=== PATIENT | female | born 1990 | race Caucasian/White ===

== ENCOUNTER 2018-11-14 00:22 | Emergency (ER) | payer BC ==
[~2018-11-14] VITALS: Ht 160 cm; Wt 68.2 kg
[2018-11-14 00:28] VITALS: Ht 160 cm; Wt 68.2 kg
[2018-11-14] MEDS ORDERED: FOLIC ACID (00:30)
[2018-11-14] MEDS ORDERED: PRENATALS (00:31)
[2018-11-14 00:54] LABS: APPEARANCE CLEAR (CLEAR); BILIRUBIN NEGATIVE (NEGATIVE); COLOR STRAW (YELLOW); GLUCOSE NEGATIVE (NEGATIVE); KETONE NEGATIVE (NEGATIVE); NITRITE NEGATIVE (NEGATIVE); PROTEIN NEGATIVE (NEGATIVE); SPECIFIC GRAVITY 1.005 (1.005-1.020); UROBILINOGEN NORMAL (NORMAL)
[2018-11-14 01:02] LABS: BASOPHILS 0.1 % (0-2); EOSINOPHILS 0.8 % (0-7); HEMATOCRIT 38.6 % (36.0-48.0); HEMOGLOBIN 12.8 g/dL (12-16); IMMATURE GRANULOCYTES 0.1 % (0-5); LYMPHOCYTES 20.8 % (15-50); MCH 29.7 pg (26.0-34.0); MCHC 33.2 g/dL (31.0-37.0); MCV 89.6 fL (80.0-100.0); MEAN PLATELET VOLUME 10.5 fL (7.4-10.4); MONOCYTES 8.1 % (2-11); NEUTROPHILS 70.1 % (40-80); PLATELET COUNT 251 10x3/uL (130-400); RBC 4.31 10x6/uL (4.00-5.40); RDW 13.4 % (11.5-14.5); WBC 9.5 10x3/uL (4.8-10.8)
[2018-11-14 01:14] LABS: HCG SERUM POSITIVE (NEGATIVE)
[2018-11-14 01:21] LABS: ALBUMIN 3.7 g/dL (3.4-5.0); ANION GAP 16.3 mmol/L (8-16); BILIRUBIN - TOTAL 0.32 mg/dL (0.2-1.3); CALCIUM 8.8 mg/dL (8.5-10.1); CARBON DIOXIDE 23.3 mmol/L (21.0-32.0); POTASSIUM - SERUM 3.6 mmol/L (3.5-5.1); PROTEIN - SERUM 7.2 g/dL (6.4-8.2)
[2018-11-14 02:55] VITALS: BP 110/80
== END 2018-11-14 02:55 | disposition home or self-care (01) ==
LOC: D.ER 00:22
PROVIDERS: Emergency Medicine
DX: O20.0 Threatened abortion (principal); Z3A.09 9 weeks gestation of pregnancy; F17.200 Nicotine dependence, unspecified, uncomplicated